=== PATIENT | female | born 1965 | race Native Hawaiian/Other Pacific Islander ===

== ENCOUNTER 2017-02-21 09:19 | Outpatient (CLI) | payer OTHER ==
[2017-02-21 10:03] LABS: PLATELET COUNT 345 K/uL (152-353)
== END 2017-02-21 19:21 | disposition home or self-care (01) ==
LOC: LABW 09:19
PROVIDERS: Nurse Practitioner
DX: Z12.31 Encounter for screening mammogram for malignant neoplasm of breast (principal); R53.83 Other fatigue; E78.00 Pure hypercholesterolemia, unspecified
CPT/HCPCS: 36415; 80061; 83036; 84443; 85027; G0202-TC

== ENCOUNTER 2018-06-13 07:39 | Day surgery (SDC) | payer OTHER ==
[~2018-06-13] VITALS: Ht 165.1 cm; Wt 75.3 kg
[2018-06-13 08:28] LABS: PLATELET COUNT 315 K/uL (152-353)
[2018-06-13 08:37] LABS: POTASSIUM 2.8 mmol/L (3.6-5.2)
== END 2018-06-13 15:35 | disposition home or self-care (01) ==
LOC: OR 07:39
PROVIDERS: Student in an Organized Health Care Education/Training Program
PROC: 0DBP8ZZ Excision of Rectum, Via Natural or Artificial Opening Endoscopic (ICD-10-PCS; principal; 2018-06-13)
PROC: 0DBN8ZZ Excision of Sigmoid Colon, Via Natural or Artificial Opening Endoscopic (ICD-10-PCS; 2018-06-13)
DX: K63.5 Polyp of colon (principal); K62.1 Rectal polyp; K64.8 Other hemorrhoids; Z12.11 Encounter for screening for malignant neoplasm of colon
CPT/HCPCS: 80053; 84132; 85027; J2001; J2250; J2704; J3480; J3490

== ENCOUNTER 2018-06-14 08:51 | Outpatient (CLI) | payer OTHER | END 2018-06-14 20:13 | disposition home or self-care (01) | LOC: MAMMO 08:51 | DX: Z12.31 Encounter for screening mammogram for malignant neoplasm of breast (principal) ==

== ENCOUNTER 2019-06-12 07:51 | Outpatient (CLI) | payer OTHER | END 2019-06-12 19:20 | disposition home or self-care (01) | LOC: RAD 07:51 | DX: M54.5 Low back pain (principal) ==

== ENCOUNTER 2020-06-04 08:10 | Outpatient (CLI) | payer OTHER | END 2020-06-04 20:20 | disposition home or self-care (01) | LOC: MAMMO 08:10 | PROVIDERS: ATTEND Nurse Practitioner Family | DX: Z12.31 Encounter for screening mammogram for malignant neoplasm of breast (principal) ==

== ENCOUNTER 2021-05-15 10:01 | Outpatient (CLI) | payer OTHER | END 2021-05-15 21:02 | disposition home or self-care (01) | LOC: RAD 10:01 | PROVIDERS: ATTEND Nurse Practitioner Family | DX: M79.642 Pain in left hand (principal) ==

== ENCOUNTER 2021-06-08 09:17 | Outpatient (CLI) | payer OTHER | END 2021-06-08 19:38 | disposition home or self-care (01) | LOC: MAMMO 09:17 | PROVIDERS: ATTEND Nurse Practitioner Family | DX: Z12.31 Encounter for screening mammogram for malignant neoplasm of breast (principal) ==

== ENCOUNTER 2021-11-23 10:46 | Outpatient (CLI) | payer OTHER | END 2021-11-23 19:01 | disposition home or self-care (01) | LOC: US 10:46 | PROVIDERS: ATTEND Nurse Practitioner Family | DX: R10.11 Right upper quadrant pain (principal); R10.9 Unspecified abdominal pain; R10.13 Epigastric pain; R14.2 Eructation; R14.0 Abdominal distension (gaseous) ==

== ENCOUNTER 2022-06-02 09:47 | Outpatient (CLI) | payer OTHER | END 2022-06-02 23:58 | disposition home or self-care (01) | LOC: US 09:47 | PROVIDERS: ATTEND Nurse Practitioner Family | DX: R10.9 Unspecified abdominal pain (principal); K76.89 Other specified diseases of liver; Z12.31 Encounter for screening mammogram for malignant neoplasm of breast ==